=== PATIENT | female | born 1990 | race Caucasian/White ===

== ENCOUNTER 2019-10-15 13:11 | Outpatient (CLI) | payer BC ==
--- NOTE | 2019-10-15 15:53 | ULT ---
FIRST TRIMESTER OBSTETRICAL ULTRASOUND: 10/15/19 INDICATION: Positive test with spotting. TECHNIQUE: Hirsch scale, color Doppler with spectral Doppler images were obtained via a transabdominal, transvagin al approach. FINDINGS: The uterus measures 8.0 x 5.7 x 6 cm. There is an intrauterine gestational sac containing a yolk sac and pole. [place]-rump length measures 1.35 cm. Mean sac diameter was 2.79 cm. The average gestat ional age by ultrasound based on the biometrics is 7 weeks, 4 days. Estimated due date 05/29/20 . Clinical date was 7 weeks, 5 days with estimated due date of 05/28/20. Cardiac activity is seen ass ociated with pole of 164 beats per minute. There is a 1.6 cm hypoechoic nonvascular lesion invo lving the right ovary suspicious for corpus luteal cyst. There is normal flow to the left ovary. No f ree fluid is evident. The right ovary measures 3.0 x 2.4 x 1.8 cm whereas the left ovary measures 2.6 x 2.0 x 1.4 cm. IMPRESSION: 1. Single live intrauterine gestation with size and dates as above. 2. Right ovarian corpus luteal cyst. POS: [facility]
== END 2019-10-15 13:12 | disposition home or self-care (01) ==
LOC: NAV ULT 13:11
DX: Z32.00 Encounter for pregnancy test, result unknown (principal); O34.81 Maternal care for other abnormalities of pelvic organs, first trimester; N83.11 Corpus luteum cyst of right ovary; Z3A.01 Less than 8 weeks gestation of pregnancy
CPT/HCPCS: 76856